=== PATIENT | male | born 1980 | race Caucasian/White ===

== ENCOUNTER 2016-11-16 16:13 | Emergency (ER) | payer OTHER | END 2016-11-16 17:40 | disposition home or self-care (01) | LOC: ER1 16:13 | DX: S80.02XA Contusion of left knee, initial encounter (principal); W22.8XXA Striking against or struck by other objects, initial encounter; Y92.89 Other specified places as the place of occurrence of the external cause | CPT/HCPCS: 73564; 99283 ==